=== PATIENT | female | born 1980 | race Caucasian/White ===

== ENCOUNTER → 2019-10-04 | Outpatient (CLI) | payer OTHER ==
[~2019-10-04] MED LIST: CHOL500021 PO; CLON-77 PO; HYOS0.1222 PO; LOSA-73 PO; METF500T16 PO; MIRT45TA53 PO; OMEP20TA63 PO; OXYC1TAB15 PO; PROG50VI IM; SUMA100T4 PO; TRAM50TA PO
== END | disposition home or self-care (01) ==
LOC: LAB 13:16
PROVIDERS: ATTEND Surgery
DX: Z01.818 Encounter for other preprocedural examination (principal); Z11.59 Encounter for screening for other viral diseases; K43.9 Ventral hernia without obstruction or gangrene
CPT/HCPCS: C9803; U0003

== ENCOUNTER 2019-10-10 06:28 | Day surgery (SDC) | payer OTHER ==
[~2019-10-10] VITALS: Ht 162.6 cm; Wt 98.0 kg
[~2019-10-10 06:28] MED LIST changes: +ACETAMINOPHEN 500 MG TABLET PO PRN; -OXYC1TAB15 PO
[2019-10-10] MEDS ORDERED: LIDOCAINE 1% PF 2 ML VIAL. ID PRN (07:00)
[2019-10-10] MEDS ORDERED: PROCHLORPERAZINE 10 MG/2 ML VIAL. IV PRN (07:00)
[2019-10-10] MEDS ORDERED: fentaNYL PF VIAL 100 MCG/2 ML VIAL IV PRN ×2 (07:00)
[2019-10-10] MEDS ORDERED: IV RINGERS,LACTATED 1000ML 1,000 ML IV SCH (07:00)
[2019-10-10] MEDS ORDERED: ONDANSETRON PF 4 MG/2 ML VIAL. IV PRN (07:00)
[2019-10-10] MEDS ORDERED: MINERAL OIL for SURGERY 10 ML VIAL. MC ONE (07:10)
[2019-10-10] MEDS ORDERED: BUPIVACAINE-EPI 0.25%-1:200000 MPF 30 ML VIAL. ONE (07:10)
[2019-10-10] MEDS ORDERED: DEXAMETHASONE SOD PHOS 4 MG/ML VIAL ONE (07:20)
[2019-10-10] MEDS ORDERED: fentaNYL PF VIAL 100 MCG/2 ML VIAL ONE ×2 (07:20→08:34)
[2019-10-10] MEDS ORDERED: LIDOCAINE 1% PF 5 ML VIAL. ONE (07:20)
[2019-10-10] MEDS ORDERED: ONDANSETRON PF 4 MG/2 ML VIAL. ONE (07:20)
[2019-10-10] MEDS ORDERED: ROCURONIUM 50 MG/5 ML VIAL. ONE (07:20)
[2019-10-10] MEDS ORDERED: PROPOFOL 10 MG/ML (20ML) VIAL. IV ONE (07:20)
[2019-10-10] MEDS ORDERED: MIDAZOLAM HCL/PF 2 MG/2 ML VIAL. ONE (07:21)
[2019-10-10] MEDS ORDERED: SUCCINYLCHOLINE 200 MG/10 ML VIAL. ONE (07:23)
[2019-10-10] MEDS ORDERED: KETAMINE HCL IN NACL, ISO-OSM 50 MG/5 ML SYRINGE ONE (07:53)
[2019-10-10] MEDS ORDERED: ceFAZolin 2GM PREMIX 2 GM/50 ML BAG IV ONE (08:00)
[2019-10-10] MEDS ORDERED: GLYCOPYRROLATE 1 MG/5 ML VIAL. ONE (08:22)
[2019-10-10] MEDS ORDERED: NEOSTIGMINE METHYLSULFATE 5 MG/5 ML SYRINGE. ONE (08:22)
--- NOTE | 2019-10-10 09:11 | PDOC4 ---
Operative Note Operative Note Date: October 092019 at 0908 Preoperative diagnosis: Ventral hernia Postoperative diagnosis: Same Procedure: Robotic assisted laparoscopic ventral hernia repair with mesh Surgeon: Kwabena Specimen: None Dictation: Patient is a 39-year-old female who is had chronic abdominal pain CT scan was done which showed a small ventral hernia with incarcerated fat. Procedure of robotic assisted laparoscopic ventral hernia repair with mesh was explained to the patient detail was benefits were also discussed including bleeding infection injury to intra-abdominal contents possible necessitating further open operations alternatives to this procedure also discussed with the patient who seemed to understand and gave both verbal and written consent to have the procedure performed. Patient was taken to the operating room placed the supine position general anesthesia was initiated once patient was sleeping intubated her abdomen was prepped and draped usual sterile fashion using ChloraPrep. An area in the left upper quadrant was injected quarter percent Marcaine with epinephrine incision was made 11 blade scalpel and a 5 mm Visiport was placed under direct visualization into the abdomen creating pneumoperitoneum once this complete 5 mm camera was placed within the abdomen which was inspected was noted there is a small ventral hernia in the midline containing fat. Da Marie ports were placed in the left midabdomen and the left lower abdomen the 5 mm Visiport was changed out da Marie port in the left upper abdomen. The da Marie robot was brought and docked all port sites surgeon went to the robotic console using grasper and Endo Joel scissors the hernia defect contents were reduced the hernia defect was then closed with a running 2 OV lock nonabsorbable suture. Bard ventral light ST mesh was then placed over the hernia defect this was sewn into place with a V lock 2-0 absorbable suture. The robot was undocked from all port sites pneumoperitoneum was reduced all ports were removed the port incisions were all closed with 4-0 subcuticular Monocryl Mastisol Steri-Strips and island dressings were applied. Patient was awakened extubated in the operating room taken to recovery in stable condition all sponge instrument needle counts listed as correct estimated blood loss 5 mL WARNER SOMERS MD Oct 10, 2019 09:11
--- NOTE | 2019-10-10 09:13 | DISCH ---
DISCHARGE INSTRUCTIONS Condition on Discharge Condition on Discharge: Stable Activity After Discharge Activity Instructions for Disc: Avoid exertion Other activity instructions: No lifting more than 20 pounds for 2 weeks Diet after Discharge Diet after Discharge: Regular Wound Incision Care Other wound/incision instructi: May shower in 24 hours Contacting the DRBrenda after DC Call your doctor for: If your condition worsens Follow-Up Follow up with: Dr. Somers in 2 weeks WARNER SOMERS MD Oct 10, 2019 09:13
[2019-10-10] MEDS ORDERED: SEVOFLURANE 61 TO 120 MINUTES. IH ONE (09:14)
[2019-10-10] MEDS ORDERED: OXYC1TAB15 PO (09:30)
[2019-10-10] MEDS ORDERED: MORPHINE SULFATE 2 MG/ML VIAL. ONE (09:36)
[2019-10-10] MEDS: MORPHINE SULFATE 2 MG/ML VIAL. IV PRN ×2 (09:40→09:44)
[2019-10-10] MEDS ORDERED: HYDROmorphone 2 MG/ML VIAL ONE (09:48)
[2019-10-10] MEDS: HYDROmorphone 2 MG/ML VIAL IV PRN ×4 (09:50→10:09)
[2019-10-10] MEDS ORDERED: oxyCODONE/APAP 5/325 1 TAB TABLET PO ONE ×2 (10:15)
[2019-10-10 10:29] VITALS: BP 120/76
== END 2019-10-10 11:00 | disposition home or self-care (01) ==
LOC: SURG 06:28
PROVIDERS: ATTEND Surgery
DX: K43.9 Ventral hernia without obstruction or gangrene (principal); Z88.8 Allergy status to other drugs, medicaments and biological substances
CPT/HCPCS: 49653; 81025; 82962; C1781; J0330; J0690; J0780; J1100; J1170; J2250; J2270; J2405; J2704; J2710; J3010; J3490; J7120

== ENCOUNTER → 2019-11-29 | Outpatient (CLI) | payer BC, OTHER ==
[~2019-11-29] MED LIST changes: -ACETAMINOPHEN 500 MG TABLET PO PRN; +BUPIVACAINE MPF 0.25% 10 ML VIAL. ONE; +MELA10TA2 PO; +OXYC1TAB15 PO
--- NOTE | 2019-11-29 12:21 | PDOC2 ---
INITIAL PAIN CONSULT DATE OF SERVICE: DOS: DATE: 11/29/19 TIME: 12:10 CHIEF COMPLAINT: Chief Complaint: Right lower quadrant abdominal pain HISTORY OF PRESENT ILLNESS: 39-year-old female presents history of pain for about 6 to 8 months right lower quadrant abdomen without any specific injury or accident that she is aware patient reports she has had multiple abdominal surgeries over multiple years including C-sections and abdominoplasty recently had a umbilical herniorrhaphy in September of this year. Patient reports that the pain was there prior to the umbilical herniorrhaphy and the umbilical hernia repair did not decrease the pain in the right lower quadrant. Patient describes the pain as aching and burning at times tingling stabbing sometimes cramping and aching has been waking her from sleep at night over the past few months. Patient reports not affect her bowel bladder control does not affect her ability to walk she not tried any therapies or routines at have decreased the pain significantly she tried high Cosamin which also did not decrease the pain as well. Patient is taking [id number] Tylenol and Advil which is not helping significantly as well. Patient rates her disability rating 0-10 10 being the worst as of 5 with family home responsibilities 0 with recreation sexual behavior and self-care 3 with social activity and occupational activities and 7 with life support activities especially sleeping. PAST MEDICAL HISTORY: PMH: Hypertension, arthritis ,irritable bowel syndrome, gastroesophageal reflux, quit smoking 2006 PREVIOUS SURGERIES: Past Surgical Hx: Umbilical hernia repair September 2019, 2000 and 2008, abdominoplasty 2013, breast reduction in 2013, wisdom teeth extraction 2005, left foot bone spur ex cision 2018, exploratory laparoscopy 2014 CURRENT MEDICATIONS: Current Meds: Active Scripts Medications Dose Route/Sig Max Daily Dose Days Date Category Melatonin 10 Mg Tab.mphase 1 Tab PO QHS 30 11/29/19 Reported Metformin Hcl 500 Mg Tablet 500 Mg PO BIDWMEALS 10/09/19 Reported Progesterone 50 Mg/1 Ml Vial 50 Mg IM EVERY 3 MOS 10/08/19 Reported Losartan Potassium 50 Mg Tablet 50 Mg PO DAILY 10/08/19 Reported Tramadol Hcl 50 Mg Tablet 50 Mg PO Q6HRS PRN 10/08/19 Reported Prilosec Otc (Omeprazole Magnesium) 20 Mg Tablet.dr 20 Mg PO DAILY 10/08/19 Reported Sumatriptan Succinate 100 Mg Tablet 100 Mg PO ONCE PRN 10/08/19 Reported Mirtazapine 45 Mg Tab.rapdis 30 Mg PO DAILY 10/08/19 Reported ALLERGIES; Allergies: Coded Allergies: duloxetine (Verified Allergy, Intermediate, dizziness, 10/10/19) FAMILY HISTORY: Family Hx: Thyroid disease, diabetes, depression, anxiety SOCIAL HISTORY: Social Hx: Patient does not drink alcohol quit smoking 6 years ago does not use any illegal illicit or recreational drugs is lives with her spouse has 2 children red lima at home reports he is currently a [id number] mom and they live locally in [facility] REVIEW OF SYSTEMS: ROS: Positive for those items mentioned in history of present illness, all systems are reviewed, otherwise negative, is complete full and well-documented on patient's chart PHYSICAL EXAM: VS: Blood pressure is 141/84 pulse 88 respirations 18 temperature 98.8 F height is 5 foot 9 inches weight is 2 1 5 pounds PE: PHYSICAL EXAMINATION: GENERAL: The patient is awake, alert, oriented, appropriate, very pleasant demeanor HEENT: Shows normocephalic, atraumatic. Extraocular movements are intact and symmetrical. Oral cavity: Mucous membranes moist and pink. Dentition is intact. NECK: Shows anterior throat supple without palpable lymphadenopathy noted. Swallow reflex symmetrical. CHEST: Shows normal on inspection. Breath sounds are clear bilaterally, no rales rhonchi wheezes auscultated. HEART: Shows S1, S2 clear. No murmurs auscultated. ABDOMEN: Soft, obese, nondistended, surgical scarring well-healed noted, with palpation shows significant tenderness inferior to the umbilicus to the right lower quadrant about a 10 cm diameter region without masses palpable no rebound but some guarding with deeper palpation. No palpable organomegaly is noted. BACK: Shows spine grossly in the midline. Normal-appearing cervical lordotic curvature. There is slightly increased thoracic kyphosis, some minor flattening of the lumbar lordotic curvature. EXTREMITIES: Lower extremities show deep tendon reflexes 2+ in the patellar and tendo calcaneus tendons. Motor exam is 5 on a scale of 5 with right dorsiflexion, extension, quadriceps and hamstring flexion and 5/5 on the left. Peripheral pulses are 1 posterior tibial. No peripheral edema is noted bilaterally. Lower extremities are warm and dry to touch, equal in color and appearance. No edema. No sores, rashes or bruising throughout. IMPRESSION: Impression: 39-year-old female with approximate 6 to 8-month history right lower quadrant abdominal pain. Multiple abdominal surgeries CT scan abdomen pelvis as noted Hypertension Obesity Arthritis Gastroesophageal reflux Plan: Options were discussed with the patient including conservative management management, and interventional techniques. Patient would like to pursue interve ntional techniques. We discussed a trans-abdominal block using descriptions as well as anatomical models to describe the procedure. Patient understands wished to proceed risk with an discussed including but not limited to bleeding infection possibility of extravasation of local anesthetic and numbness side effects of local anesthetic as well as poor results regarding pain control. Patient understands wished to proceed patient return to the clinic in approximately 2 weeks for follow-up was counseled as to return appointment activity level and side effects be aware of. Under sterile prep and drape patient in supine position patient's abdomen was prepped using sterile prep and drape using a 25-gauge needle and control syringe transabdominal block was performed in the right lateral lower quadrant negative aspiration was verified total of 10 cc 0.25% bupivacaine was then injected with out resistance or difficulty. Patient tolerated procedure well had no complications. BRITT WERNER MD Nov 29, 2019 12:21
== END | disposition home or self-care (01) ==
LOC: PNCL 09:34
PROVIDERS: ATTEND Anesthesiology
DX: R10.31 Right lower quadrant pain (principal); I10 Essential (primary) hypertension; M19.90 Unspecified osteoarthritis, unspecified site; E66.9 Obesity, unspecified; Z68.36 Body mass index [BMI] 36.0-36.9, adult; K21.9 Gastro-esophageal reflux disease without esophagitis; Z87.891 Personal history of nicotine dependence; Z98.890 Other specified postprocedural states; Z83.3 Family history of diabetes mellitus; Z88.8 Allergy status to other drugs, medicaments and biological substances
CPT/HCPCS: 64450; J3490

== ENCOUNTER → 2019-12-23 | Outpatient (CLI) | payer BC, OTHER ==
--- NOTE | 2019-12-23 09:29 | PDOC ---
Progress Note - Pain Clinic Date of Service: DOS: DATE: 12/23/19 TIME: 09:25 Diagnosis: Dx: Right lower quadrant abdominal pain History or Present Illness: HPI: 39-year-old female returns follow-up status post right transabdominal block on November 29, 2019. Patient reports 75% improvement until the last 4 days the pain returned in the right lower quadrant but not to the severity was previously patient reports before that she was doing much better with increased activity much less pain doing household activities work activities try with greater ease and comfort patient reports that now the pain is returning in the right lower quadrant is a 4 on a scale of 10 is worst 3 on average and 0 at its least is a 3 today patient reports no new motor or sensory deficit still some pain in the right lower quadrant as was previously superficially but also deeper in the abdominal wall as it was before. Patient reports no new motor or sensory deficits reports is not awakened from sleep at night better with sitting or relaxing worse with twisting bending changing positions or walking. Physical Exam: VS: Blood pressure is 134/90 pulse 81 respirations are 18 temperature 90.1 F height is 5 feet 4 inches weight is 211 pounds PE: PHYSICAL EXAMINATION: GENERAL: The patient is awake, alert, oriented, appropriate, very pleasant demeanor HEENT: Shows normocephalic, atraumatic. Extraocular movements are intact and symmetrical. NECK: Shows anterior throat supple without palpable lymphadenopathy noted. Swallow reflex symmetrical. CHEST: Shows normal on inspection. Breath sounds are clear bilaterally, no rales rhonchi or wheezes. HEART: Shows S1, S2 clear. No murmurs auscultated. ABDOMEN: Soft, nontender, nondistended obese. No palpable organomegaly is noted. No rebound or guarding demonstrated. Patient shows area in the right lower quadrant lateral to the umbilicus but inferior to the mid transverse abdominal line fairly well marcated approximately 10 x 10 cm region of very tender with palpation abdominal wall pain without specific radiation. Patient has no rashes no sores no bruising no abnormalities of the skin itself and above and below this region as well as laterally and medial to the region is nontender and is fairly well demarcated. No guarding or rebound in this region as well. SKIN: Shows warm and dry, good turgor. No edema. No sores, rashes or bruising throughout. Procedure: Procedure: Options were discussed with the patient. Patient chart was reviewed as her current medication regimen updated current review of systems updated today as well. We will proceed with a right transabdominal block risks are discussed including but not limited to bleeding infection possibility of extravasation of local anesthetic and spread with numbness as well as poor results regarding pain control. Patient understands wished to proceed patient return to clinic in approximate 4 weeks for follow-up or as necessary. Patient was counseled as to return appointment activity level and side effects to be aware of. Medication Injected: Med Injected: Under sterile prep and drape right transabdominal block was performed right lower quadrant using 25-gauge 1/2 inch needle with negative aspiration total of 10 cc 0.25% bupivacaine after negative aspiration. Patient tolerated procedure well had no complications. Condition at Discharge: Condition at Discharge: Patient tolerated the procedure well had no complications. BRITT WERNER MD Dec 23, 2019 09:29
== END | disposition home or self-care (01) ==
LOC: PNCL 08:45
PROVIDERS: ATTEND Anesthesiology
DX: R10.31 Right lower quadrant pain (principal); Z98.890 Other specified postprocedural states; Z88.8 Allergy status to other drugs, medicaments and biological substances
CPT/HCPCS: 64450; J3490

== ENCOUNTER → 2020-02-06 | Outpatient (CLI) | payer BC ==
--- NOTE | 2020-02-06 14:53 | PDOC ---
Progress Note - Pain Clinic Date of Service: DOS: DATE: 02/06/20 TIME: 14:48 Diagnosis: Dx: Right lower quadrant abdominal pain Postoperative pain History or Present Illness: HPI: 39-year-old female returns follow-up status post transabdominal block x2 last seen December. Patient ports near 100% improvement for about 5 weeks after the injection the pain returned 1 week ago in the right lower quadrant similar to what it was previously but not quite to baseline. Patient ports her pain is a 5 on a scale of 10 at this time and last week for an average 0 at its least and is a 4 today. Patient reports no new motor or sensory deficit or other complaints not awaken her from sleep dizzy she was doing much better with walking standing changing positions doing household activities try with greater ease and comfort now the pain is beginning to return in the right lower quadrant as it was previously. Patient reports no new motor or sensory deficits or other complaints Physical Exam: VS: Blood pressure is 136/103 pulse 109 respirations 18 temperature 90.7 F height is 5 feet 4 inches weight is 213 pounds PE: PHYSICAL EXAMINATION: GENERAL: The patient is awake, alert, oriented, appropriate, very pleasant demeanor HEENT: Shows normocephalic, atraumatic. Extraocular movements are intact and symmetrical. Oral cavity: Mucous membranes moist and pink. Dentition is intact. NECK: Shows anterior throat supple without palpable lymphadenopathy noted. Swallow reflex symmetrical. CHEST: Shows normal on inspection. Breath sounds are clear bilaterally. HEART: Shows S1, S2 clear. No murmurs auscultated. ABDOMEN: Soft, nontender, nondistended. No palpable organomegaly is noted. No rebound or guarding demonstrated. Patient has area approximately 10 cm diameter just to the right and inferior of the umbilicus with very tender even with light touch but not quite allodynia, in the abdominal wall and just below with moderate pressure is even more painful. It is very well-circumscribed with no pain above or below medial or lateral to the area of the 10 cm circumscribed region. No radiation with palpation. BACK: Shows spine grossly in the midline. Normal-appearing cervical lordotic curvature. There is slightly increased thoracic kyphosis, some minor flattening of the lumbar lordotic curvature. SKIN: Shows warm and dry, good turgor. No edema. No sores, rashes or bruising throughout. Procedure: Procedure: Options were discussed with the patient. Patient chart was reviewed as her current medication regimen updated current review of systems updated today as well. We will proceed with a third in the series transabdominal block the right lower quadrant. Risks are discussed including but not limited to bleeding infection possibility of intervascular injection sequelae spread local anesthetic and numbness, and poor results regarding pain control. Patient understands wished to proceed. Patient return to clinic in approximately 4 weeks, or as necessary for follow-up was counseled as to return appointment activity level and side effects to be aware of. Medication Injected: Med Injected: Under sterile prep and drape patient's abdominal wall was examined and prepped and draped in usual fashion using a 25-gauge 1-1/2 inch needle transabdominal block was carried out area of 10 cm diameter lateral and inferior to the umbilicus in the right lower quadrant with negative aspiration throughout. Patient tolerated procedure well and had no complications. Condition at Discharge: Condition at Discharge: Condition at discharge stable, patient tolerated procedure well and had no complications. BRITT WERNER MD Feb 06, 2020 14:53
== END | disposition home or self-care (01) ==
LOC: PNCL 14:01
PROVIDERS: ATTEND Anesthesiology
DX: R10.31 Right lower quadrant pain (principal); G89.18 Other acute postprocedural pain; Z79.84 Long term (current) use of oral hypoglycemic drugs; Z79.899 Other long term (current) drug therapy; Z87.891 Personal history of nicotine dependence; Z88.8 Allergy status to other drugs, medicaments and biological substances
CPT/HCPCS: 64486; J3490; 64450

== ENCOUNTER → 2020-03-04 | Outpatient (CLI) | payer BC ==
--- NOTE | 2020-03-04 14:45 | PDOC ---
Progress Note - Pain Clinic Date of Service: DOS: DATE: 03/04/20 TIME: 14:40 Diagnosis: Dx: Right lower quadrant abdominal pain with chronic postop pain from umbilical herniorrhaphy History or Present Illness: HPI: 39-year female returns follow-up status post transversus abdominis plane block x3 right lower quadrant. Patient ports about 60% overall improvement after the last injection previously with near 100% improvement after the second injection pain returning now patient reports only over the past week to 2 weeks has been more painful at night is been bothering her when she is sleeping is been waking her from sleep occasionally patient reports most nights it does not but some nights it has and has been more sharp in the right lower quadrant but again significantly improved from that previous to the injections patient reports her pain is a 4 to scale 10 is worse over the past week to an average 0 its least is a 2 today. Patient reports no new motor or sensory deficits again sleeping most nights but is been waking her from sleep about the past 1 to 2 weeks. Patient reports no new motor or sensory deficits no new changes describes pain as aching dull shooting sometimes cramping in the right lower quadrant as well. Physical Exam: VS: Blood pressure is 147/97 pulse 101 respirations 18 temperature 90.2 F height is 5 feet 4 inches weight is 216 pounds PE: PHYSICAL EXAMINATION: GENERAL: The patient is awake, alert, oriented, appropriate, very pleasant demeanor HEENT: Shows normocephalic, atraumatic. Extraocular movements are intact and symmetrical. NECK: Shows anterior throat supple without palpable lymphadenopathy noted. Swallow reflex symmetrical. CHEST: Shows normal on inspection. Breath sounds are clear bilaterally. HEART: Shows S1, S2 clear. No murmurs auscultated. ABDOMEN: Soft, nontender, nondistended. No palpable organomegaly is noted. No rebound or guarding demonstrated. Patient's right lower quadrant and right periumbilical distribution shows significant tenderness with even moderate to light palpation in a well-circumscribed area about 10 cm diameter inferior and rightward from the umbilicus itself which shows well-healed surgical scarring. No overt allodynia is present but very tender with moderate and light palpation, but without radiation. BACK: Shows spine grossly in the midline. Normal-appearing cervical lordotic curvature. There is slightly increased thoracic kyphosis, some minor flattening of the lumbar lordotic curvature. SKIN: Shows warm and dry, good turgor. No edema. No sores, rashes or bruising throughout. Procedure: Procedure: Options were discussed with the patient. Patient's old chart was reviewed as her current medication regimen updated current review of systems updated today as well. We will proceed with a right lower quadrant transversus abdominis plane block is the fourth in the series. Risks were discussed including but not limited to bleeding infection possibility of intravascular injection sequelae spread local anesthetic numbness side effects of local anesthetic as well as poor results regarding pain control. Patient understands wished to proceed. Patient will return to clinic in approximately 4 weeks or as necessary. Patient was counseled as activity level as well as side effects to be aware of. Medication Injected: Med Injected: Under sterile prep and drape patient's abdomen was prepped in the right lower quadrant using a 25-gauge 1-1/2 inch needle with a control syringe total of 10 cc of 0.25% bupivacaine was injected in transversus abdominis plane block, after negative aspiration. Patient tolerated the procedure well and had no complications. Condition at Discharge: Condition at Discharge: Condition at discharge stable, patient tolerated procedure well and had no complications BRITT WERNER MD Mar 04, 2020 14:45
== END | disposition home or self-care (01) ==
LOC: PNCL 13:45
PROVIDERS: ATTEND Anesthesiology
DX: R10.31 Right lower quadrant pain (principal); Z79.899 Other long term (current) drug therapy; Z79.84 Long term (current) use of oral hypoglycemic drugs; Z98.890 Other specified postprocedural states; Z87.891 Personal history of nicotine dependence; Z88.8 Allergy status to other drugs, medicaments and biological substances
CPT/HCPCS: 64486; J3490

== ENCOUNTER → 2020-09-29 | Outpatient (CLI) | payer BC ==
--- NOTE | 2020-09-29 09:35 | PDOC ---
Progress Note - Pain Clinic Date of Service: DOS: DATE: 09/29/20 TIME: 09:30 Diagnosis: Dx: Right lower quadrant abdominal pain, postop painchronic, status post umbilical herniorrhaphy History or Present Illness: HPI: 40-year-old female returns for follow-up last seen March 04, 2020 status post transabdominis plane block x4. Patient reports 100% improvement until July of this year with me 5 months decreased pain in the right lower quadrant towards the midline patient reports is returning now over the past 3 to 4 weeks increasing more at night is more sharper pain at night still not back to baseline but patient reports significant pain in the right lower quadrant right periumbilical region as well patient reports is a 7 on scale 10 is worse over the past week for an average 1 its least and is a 4 today patient ports aching cramping stabbing on and off in intensity worse with activity standing walking changing positions generally does not awaken her from sleep more than once or twice a night but is waking her from sleep about once every 6-8 hours patient reports no new motor or sensory deficits no new bowel or bladder incontinence or other complaints. Patient is doing much better after last injection was very pleased with her progress. Physical Exam: VS: Blood pressure is 132/90 pulse 93 respirations 18 temperature 98.6 3 Fahrenheit height is 5 feet 4 inches weight is 204 pounds PE: PHYSICAL EXAMINATION: GENERAL: The patient is awake, alert, oriented, appropriate, very pleasant in demeanor HEENT: Shows normocephalic, atraumatic. Extraocular movements are intact and symmetrical. NECK: Shows anterior throat supple without palpable lymphadenopathy noted. Swallow reflex symmetrical. CHEST: Shows normal on inspection. Breath sounds are clear bilaterally, no rales or rhonchi auscultated. HEART: Shows S1, S2 clear. No murmurs auscultated. ABDOMEN: Soft, nontender, nondistended, obese. No palpable organomegaly is noted. No rebound or guarding demonstrated. Patient has well-healed surgical scar at the umbilicus with palpation shows some significant tenderness with even moderate palpation right of the umbilicus and in the right lower quadrant with some minor radiation to the right groin with deeper palpation. No specific masses are palpated no rashes no discoloration of the skin is noted. Again well-healed surgical scars at the area of umbilical herniorrhaphy. SKIN: Shows warm and dry, good turgor. No edema. No sores, rashes or bruising throughout. Procedure: Procedure: Options were discussed with the patient. Patient's old chart was reviewed as her current medication regimen updated current review of systems updated today as well. We will proceed with a repeat right transabdominis plane block. Risk were discussed including but not limited to bleeding infection possibility of intravascular injection and sequelae spread local anesthetic and numbness as well as poor results regarding pain control. Patient understands wished to proceed. Patient will return to clinic in approximate 4 weeks for follow-up, was counseled as to return appointment activity level and side effects to be aware of. Medication Injected: Med Injected: Patient in the supine position under sterile prep and drape patient's abdominal wall was prepped and draped using 25-gauge needle was then injected in the right lower quadrant and periumbilical region with good popping sensation as needle was traversing through the myofascial layers with the needle, with negative aspiration prior to injection. A total of 10 cc of 0.25% bupivacaine was administered. Patient tolerated procedure well had no complications. Condition at Discharge: Condition at Discharge: Condition at discharge stable, patient already procedure well had no complications. BRITT WERNER MD Sep 29, 2020 09:35
--- NOTE | 2020-09-29 09:36 | PDOC4 ---
Procedure Note: Procedure Note: Patient was consented for transabdominis plane block, right lower quadrant. Risk were discussed including but not limited to bleeding infection possibility of intravascular injection sequelae spread of local anesthetic and numbness and portals regarding pain control. Patient understands wished to proceed. Patient in the supine position under sterile prep and drape patient's abdominal wall was prepped and draped using 25-gauge needle was then injected in the right lower quadrant and periumbilical region with good popping sensation as needle was traversing through the myofascial layers with the needle, with negative aspiration prior to injection. A total of 10 cc of 0.25% bupivacaine was admin istered. Patient tolerated procedure well had no complications. BRITT WERNER MD Sep 29, 2020 09:36
== END | disposition home or self-care (01) ==
LOC: PNCL 09:04
PROVIDERS: ATTEND Anesthesiology
DX: R10.31 Right lower quadrant pain (principal); G89.29 Other chronic pain; Z79.84 Long term (current) use of oral hypoglycemic drugs; Z79.899 Other long term (current) drug therapy; Z87.891 Personal history of nicotine dependence; Z88.8 Allergy status to other drugs, medicaments and biological substances
CPT/HCPCS: 64486; J3490

== ENCOUNTER → 2021-03-31 | Outpatient (CLI) | payer OTHER ==
[~2021-03-31] MED LIST changes: +IOHEXOL 180 MG/ML 10 ML VIAL. ONE; +methylPREDNISolone ACETATE 80 MG/ML VIAL. ONE
--- NOTE | 2021-03-31 08:29 | PDOC ---
Progress Note - Pain Clinic Date of Service: DOS: DATE: 03/31/21 TIME: 08:23 Diagnosis: Dx: Facial pain Lumbar radiculopathy with lumbar degenerative disease Abdominal pain-chronic- post op, status post ventral herniorrhaphy History or Present Illness: HPI: 40-year-old female returns after transverses abdominis plane block last seen September 29, 2020 did very well near 100% improvement after the last injection patient reports has had another exploratory laparotomy and her pain is still completely resolved patient's complaint today however is new pain in the mid and low back patient reports is radiating to the bilateral lower extremities posterior gluteus lateral thigh anterior thighs right and left essentially equal with slightly worse on the left today patient reports it is a 5 on a scale 10 is worst, 4 on average to its least is a 3 today. Patient reports its been going on for several months now increasing she has been taking muscle relaxants as well as anti-inflammatories without significant reduction pain also doing physical therapy exercises stretching strengthening daily and trying to walk daily is becoming more painful with more radiating pain especially in the low back and again more on the left side than the right patient reports no loss of motor function no bowel or bladder incontinence still significant pain in the back itself also in the mid upper back is becoming more painful recently as well over the past month or so patient reports is better with sitting or laying down generally does not awaken her from sleep at night worse with walking standing changing position specially getting up from a seated position and standing for prolonged periods more than 20 to 30minutes. Patient reports no bowel or bladder incontinence, no loss of motor function but significant fatigability in the low back as well as the bilateral lower extremities slightly more on the left. Patient did have plain films through her primary physician showing some degenerative changes in the lumbar spine as noted. Physical Exam: VS: Blood pressure is 154/103 pulse 91 respirations are 16 temperature 98.2 F height is 5 feet 4 inches weight is 219 pounds PE: PHYSICAL EXAMINATION: GENERAL: The patient is awake, alert, oriented, appropriate, very pleasant in demeanor HEENT: Shows normocephalic, atraumatic. Extraocular movements are intact and symmetrical. Oral cavity: Mucous membranes moist and pink. Dentition is intact. NECK: Shows anterior throat supple without palpable lymphadenopathy noted. Swallow reflex symmetrical. CHEST: Shows normal on inspection. Breath sounds are clear bilaterally, distant but no rales or rhonchi auscultated. HEART: Shows S1, S2 clear. No murmurs auscultated. ABDOMEN: Soft, nontender, nondistended. No palpable organomegaly is noted. Well-healed surgical scarring is again appreciated without significant tenderness throughout with palpation. BACK: Shows spine grossly in the midline. Normal-appearing cervical lordotic curvature. There is slightly increased thoracic kyphosis, some minor flattening of the lumbar lordotic curvature. Lumbar paraspinous muscles show symmetrical on inspection, on palpation shows some moderate tenderness diffusely throughout the upper, middle and lower distribution of the paraspinous muscles, with significant very firm ropelike musculature in the lower thoracic bilaterally as well as the bilateral lumbar paraspinous posterior middle lower and upper distribution very firm ropelike without specific radiation but consistent with trigger point areas of musculature is during the superior and medial aspect of the gluteus bilaterally again worse on the left than the right with palpation but without significant radiation very firm ropelike musculature consistent with trigger point areas of muscle in the gluteus as well. The patient has good rotational motion of the lumbar spine, both laterally as well as extension and flexion without significant difficulty. No tenderness over the spinous processes, sacrum or sacroiliac regions. EXTREMITIES: Lower extremities show deep tendon reflexes 2+ in the patellar and tendo calcaneus tendons. Motor exam is 5 on a scale of 5 with right dorsi flexion, extension, quadriceps and hamstring flexion and 5/5 on the left. Peripheral pulses are 1+ posterior tibial. No peripheral edema is noted bilaterally. Lower extremities are warm and dry to touch, equal in color and appearance. SKIN: Shows warm and dry, good turgor. No edema. No sores, rashes or bruising throughout. Procedure: Procedure: Options were discussed with the patient. Patient chart reviews her current medication regimen updated current review of systems updated today as well. We will proceed with trigger point injections of the aforementioned muscular bilateral thoracic paraspinous posture, bilateral lumbar paraspinous muscular, and bilateral gluteus musculature. Risk were discussed including but not limited to bleeding infection possibility of intravascular injection sequelae spread local anesthetic numbness side effects steroid medication and poor results regarding pain control. Patient understands wished to proceed. Patient will return to clinic in approximate 2 weeks for follow-up, was counseled as to return appointment, activity level, and side effect to be aware of. Medication Injected: Med Injected: In sitting position under sterile prep and drape identified musculature with trigger point areas lower thoracic paraspinous muscular bilaterally, lumbar paraspinous musculature bilateral upper middle and lower, gluteus musculature bilaterally was then injected using 25-gauge needle after negative aspiration each injection site for a total of 8 cc 0.25% Vivacaine total of 40 mg Depo- Medrol. Patient tolerated the procedure well and had no complications. Condition at Discharge: Condition at Discharge: Condition at discharge stable, patient tolerated the procedure well and had no complications. BRITT WERNER MD Mar 31, 2021 08:29
--- NOTE | 2021-03-31 08:30 | PDOC4 ---
Procedure Note: ICD 10 Code: ICD 10 Code: M60.89 Procedure Note: Patient was consented for trigger point injections bilateral thoracic paraspinous posture, bilateral lumbar paraspinous muscular, bilateral gluteus musculature. Risk were discussed including but not limited to bleeding infection possibility of intravascular injection sequelae spread of local anesthetic and numbness side effects of steroid medication and poor results regarding pain control. Patient understands and wished to proceed. In sitting position under sterile prep and drape identified musculature with trigger point areas lower thoracic paraspinous muscular bilaterally, lumbar paraspinous musculature bilateral upper middle and lower, gluteus musculature bilaterally was then injected using 25-gauge needle after negative aspiration each injection site for a total of 8 cc 0.25% Vivacaine total of 40 mg Depo- Medrol. Patient tolerated the procedure well and had no complications. BRITT WERNER MD Mar 31, 2021 08:30
== END | disposition home or self-care (01) ==
LOC: PNCL 07:35
PROVIDERS: ATTEND Anesthesiology
DX: M60.89 Other myositis, multiple sites (principal); M51.16 Intervertebral disc disorders with radiculopathy, lumbar region; R10.9 Unspecified abdominal pain; Z87.891 Personal history of nicotine dependence; Z79.84 Long term (current) use of oral hypoglycemic drugs; Z79.899 Other long term (current) drug therapy; Z88.8 Allergy status to other drugs, medicaments and biological substances
CPT/HCPCS: 20553; J1040; J3490; Q9965

== ENCOUNTER → 2021-05-17 | Outpatient (CLI) | payer OTHER ==
[~2021-05-17] MED LIST changes: +DEXAMETHASONE PRES.FREE 10 MG/ML VIAL. ONE; -IOHEXOL 180 MG/ML 10 ML VIAL. ONE; +TIZA-75 PO; -methylPREDNISolone ACETATE 80 MG/ML VIAL. ONE
--- NOTE | 2021-05-17 08:33 | PDOC ---
Progress Note - Pain Clinic Date of Service: DOS: DATE: 05/17/21 TIME: 08:25 Diagnosis: Dx: Myofascial pain Lumbar radiculopathy with lumbar degenerative disease Chronic postop abdominal pain status post ventral herniorrhaphy History or Present Illness: HPI: 40-year-old female returns for follow-up status post bilateral thoracic and lumbar and gluteus trigger point injections. Patient reports about 90% improvement for the first week and the pain beginning to return back slowly and gradually patient reports is in the upper back mid back as well as the low back into the hips bilaterally right essentially equal to left patient which is sharp and tight can be cramping and constant rated as a 6 on scale 10 is worse over the past week 5 on average 4 to [place] is a 4 today patient reports she has recent left foot fracture and she is wearing a boot on the left foot as well which is causing her pain to increase as she is walking awkwardly and using a lot of the pressure in her back to ambulate causing some increased pain patient reports that she did very well for the first 2 weeks or so after the [employer] injections also has had a recent exploratory laparotomy with lysis of adhesions which is decreased abdominal pain significantly. Patient reports that the pain is cramping as sharp and tight in the back especially between the shoulders upper back mid back in the low back is more of an aching dull pain which is stabbing and constant as well worse with activity standing walking changing positions wakes her from sleep about every 4 hours most nights patient reports no bowel or bladder incontinence no loss of motor function but again significant difficulty with walking she has significant pain in her knees also causing the back to be more aching with ambulation. Patient has been taking tizanidine but makes her very sleepy we discussed this in further detail and will change to new medication prescription of baclofen 10 mg 3 times daily patient given instructions as well as with the new prescription medication. Physical Exam: VS: Blood pressure is 133/97 pulse 96 respirations 16 temperature 98.3 F height 5 feet 4 inches weight is 224 pounds PE: PHYSICAL EXAMINATION: GENERAL: The patient is awake, alert, oriented, appropriate, very pleasant in demeanor HEENT: Shows normocephalic, atraumatic. Extraocular movements are intact and symmetrical. Oral cavity: Mucous membranes moist and pink. Dentition is intact. NECK: Shows anterior throat supple without palpable lymphadenopathy noted. Swallow reflex symmetrical. CHEST: Shows normal on inspection. Breath sounds are clear bilaterally, no rales or rhonchi. HEART: Shows S1, S2 clear. No murmurs auscultated. ABDOMEN: Soft, nontender, nondistended. No palpable organomegaly is noted. BACK: Shows spine grossly in the midline. Normal-appearing cervical lordotic curvature. There is slightly increased thoracic kyphosis, some minor flattening of the lumbar lordotic curvature. Lumbar paraspinous muscles show symmetrical on inspection, on palpation shows some moderate tenderness diffusely throughout the upper, middle and lower distribution of the paraspinous muscles with very firm ropelike musculature very tender consistent with trigger point areas of musculature throughout the thoracic distribution upper middle lower decrease the paraspinous muscles in the lumbar distribution as well as into the superior medial gluteus musculature bilaterally very firm ropelike musculature very tender with consistency and characteristic of trigger point areas without specific radiation of pain. The patient has good rotational motion of the lumbar spine, both laterally as well as extension and flexion without significant difficulty. No tenderness over the spinous processes, sacrum or sacroiliac regions. EXTREMITIES: Lower extremities show deep tendon reflexes 2+ in the patellar and tendo calcaneus tendons. Motor exam is 5 on a scale of 5 with right dorsiflexion, extension, quadriceps and hamstring flexion and 5/5 on the left. Peripheral pulses are 1+ posterior tibial. No peripheral edema is noted bilaterally. Lower extremities are warm and dry to touch, equal in color and appearance. Patient wearing a hard boot on the left foot. SKIN: Shows warm and dry, good turgor. No edema. No sores, rashes or bruising throughout. Procedure: Procedure: Options were discussed with patient. Patient's chart was reviewed as her current medication regimen updated current review of systems updated today as well. We will proceed with trigger point injections of the bilateral thoracic paraspinous posterior bilateral lumbar paraspinous muscles bilateral gluteus musculature. Risk were discussed including but not limited to bleeding infection possibility of intravascular injection sequelae spread of local anesthetic numbness side effects of steroid medication as well as poor results regarding pain control. Patient understands wishes to proceed. Again, will start new prescription medication of baclofen 10 mg 3 times daily patient was given instruction as well as side effects beware with the new prescription medication. Medication Injected: Med Injected: Patient sitting position under sterile prep and drape trigger point injections were identified in the bilateral thoracic paraspinous posture, bilateral lumbar paraspinous muscles, bilateral gluteus musculature. 25-gauge needle after negative aspiration each injection site trigger points were injected a total of 10 cc 0.25% bupivacaine and total of 10 mg dexamethasone. Patient tolerated the procedure well and had no complications. Condition at Discharge: Condition at Discharge: Condition at discharge stable, patient tolerated procedure well had no complications. BRITT WERNER MD May 17, 2021 08:33
--- NOTE | 2021-05-17 08:34 | PDOC4 ---
Procedure Note: ICD 10 Code: ICD 10 Code: M60.89 Procedure Note: Patient was consented for trigger point injections. Risk were discussed including not limited to bleeding infection possibility of intravascular ejection sequelae spread of local anesthetic and numbness side effects of steroid medication and poor results regarding pain control. Patient understands wished to proceed. Patient sitting position under sterile prep and drape trigger point injections were identified in the bilateral thoracic paraspinous posture, bilateral lumbar paraspinous muscles, bilateral gluteus musculature. 25-gauge needle after negative aspiration each injection site trigger points were injected a total of 10 cc 0.25% bupivacaine and total of 10 mg dexamethasone. Patient tolerated the procedure well and had no complications. BRITT WERNER MD May 17, 2021 08:34
== END | disposition home or self-care (01) ==
LOC: PNCL 07:57
PROVIDERS: ATTEND Anesthesiology
DX: M79.18 Myalgia, other site (principal); M51.16 Intervertebral disc disorders with radiculopathy, lumbar region; G89.29 Other chronic pain; Z79.84 Long term (current) use of oral hypoglycemic drugs; Z79.899 Other long term (current) drug therapy; Z87.891 Personal history of nicotine dependence; Z88.8 Allergy status to other drugs, medicaments and biological substances
CPT/HCPCS: 20553; J1100; J3490

== ENCOUNTER → 2021-06-07 | Outpatient (CLI) | payer OTHER ==
--- NOTE | 2021-06-07 08:55 | PDOC ---
Progress Note - Pain Clinic Date of Service: DOS: DATE: 06/07/21 TIME: 08:51 Diagnosis: Dx: Myofascial pain Lumbar radiculopathy with lumbar degenerative disc disease Abdominal pain with chronic postoperative pain status post ventral herniorrhaphy History or Present Illness: HPI: 40-year-old female returns for follow-up status post trigger point injections last seen May 17, 2021 patient did very well with about 50% improvement in the mid back upper back and low back and hips patient reports for several weeks pain was much reduced increase in activity with greater ease and comfort walking greater distances doing household activities work activities sleeping better patient reports still better with laying down does not generally awaken her from sleep at night patient reports no loss of motor function no bowel bladder incontinence but significant stiffness and tightness returning in the mid back u pper back into the low back and into the hips significantly the posterior gluteus bilaterally somewhat worse on the right than the left but present bilaterally patient reports cramping stabbing aching and tight in the back on and off in intensity again worse with activity worse with changing positions better with sitting or laying down and not awaken from sleep patient reports no bowel or bladder incontinence. Physical Exam: VS: Blood pressure is 159/104 pulse 93 respirations 18 temperature 98.4 F height is 5 feet 4 inches weight is 224 pounds PE: PHYSICAL EXAMINATION: GENERAL: The patient is awake, alert, oriented, appropriate, very pleasant in demeanor HEENT: Shows normocephalic, atraumatic. Extraocular movements are intact and symmetrical. Oral cavity: Mucous membranes moist and pink. Dentition is intact. NECK: Shows anterior throat supple without palpable lymphadenopathy noted. Swallow reflex symmetrical. CHEST: Shows normal on inspection. Breath sounds are clear bilaterally. HEART: Shows S1, S2 clear. No murmurs auscultated. ABDOMEN: Soft, nontender, nondistended. No palpable organomegaly is noted. BACK: Shows spine grossly in the midline. Normal-appearing cervical lordotic curvature. There is slightly increased thoracic kyphosis, some minor flattening of the lumbar lordotic curvature. Lumbar paraspinous muscles show symmetrical on inspection, on palpation shows some moderate tenderness diffusely throughout the upper, middle and lower distribution of the paraspinous muscles with significant tenderness throughout the rhomboid distribution of the trapezius as well as the thoracic paraspinous muscles are very firm ropelike musculature consistent with areas of trigger point musculature bilaterally without specific radiation lumbar paraspinous muscles show significant tenderness throughout the upper middle lower distribution the paraspinous muscles again very firm ropelike musculature bilaterally also into the superior and medial gluteus more on the right than left again with very firm ropelike musculature consistent with trigger point areas of musculature but without radiation on palpation bilaterally., without radiation of pain. The patient has good rotational motion of the lumbar spine, both laterally as well as extension and flexion without significant difficulty. No tenderness over the spinous processes, sacrum or sacroiliac regions. EXTREMITIES: Lower extremities show deep tendon reflexes 2+ in the patellar and tendo calcaneus tendons. Motor exam is 5 on a scale of 5 with right dorsiflexion, extension, quadriceps and hamstring flexion and 5/5 on the left. Peripheral pulses are 1+ posterior tibial. No peripheral edema is noted bilaterally. Lower extremities are warm and dry to touch, equal in color and appearance. SKIN: Shows warm and dry, good turgor. No edema. No sores, rashes or bruising throughout. Procedure: Procedure: Options were discussed with the patient. Patient's old chart was reviewed as her current medication regimen updated current review of systems updated today as well. We will proceed with trigger point injections of the identified musculature in the bilateral trapezius muscular bilateral thoracic paraspinous muscle bilateral lumbar paraspinous posterior and bilateral gluteus musculature. Risk were discussed including but not limited to bleeding infection possibility of intravascular injection sequelae spread of local anesthetic and numbness side effects of steroid medication and poor results regarding pain control. Patient understands wished to proceed. Patient return to clinic in approximately 4 weeks for follow-up, was counseled as to return appointment, activity level, and side effect to be aware of. Medication Injected: Med Injected: Patient sitting position under sterile prep and drape patient's trapezius thoracic paraspinous muscle as well as lumbar paraspinous and gluteus was sterilely prepped and draped in usual fashion. Using a 25-gauge needle after negative aspiration each injection site the trigger point areas were identified and injected for a total of 12 cc 0.25% ropivacaine and 10 mg dexamethasone. Patient tolerated the procedure well and had no complications. Condition at Discharge: Condition at Discharge: Condition at discharge stable, patient tolerated procedure well and had no complications. BRITT WERNER MD Jun 07, 2021 08:55
--- NOTE | 2021-06-07 08:56 | PDOC4 ---
Procedure Note: ICD 10 Code: ICD 10 Code: M60.89 Procedure Note: Patient was consented for trigger point injections. Risk were discussed including but not limited to bleeding infection possibility of intravascular injection and sequelae spread of local anesthetic and numbness pneumothorax side effects of steroid medication and poor results regarding pain control. Patient understands wishes to proceed. Patient sitting position under sterile prep and drape patient's trapezius thoracic paraspinous muscle as well as lumbar paraspinous and gluteus was sterilely prepped and draped in usual fashion. Using a 25-gauge needle after negative aspiration each injection site the trigger point areas were identified and injected for a total of 12 cc 0.25% ropivacaine and 10 mg dexamethasone. Patient tolerated the procedure well and had no complications. BRITT WERNER MD Jun 07, 2021 08:56
== END | disposition home or self-care (01) ==
LOC: PNCL 08:24
PROVIDERS: ATTEND Anesthesiology
DX: M79.18 Myalgia, other site (principal); M51.16 Intervertebral disc disorders with radiculopathy, lumbar region; R10.9 Unspecified abdominal pain; Z87.891 Personal history of nicotine dependence; Z79.84 Long term (current) use of oral hypoglycemic drugs; Z79.899 Other long term (current) drug therapy; Z88.8 Allergy status to other drugs, medicaments and biological substances
CPT/HCPCS: 20553; J1100; J3490

== ENCOUNTER → 2021-07-12 | Outpatient (CLI) | payer OTHER ==
[~2021-07-12] MED LIST changes: +LEVO50TA5 PO
--- NOTE | 2021-07-12 08:56 | PDOC ---
Progress Note - Pain Clinic Date of Service: DOS: DATE: 07/12/21 TIME: 08:47 Diagnosis: Dx: Myofascial pain Lumbar radiculopathy with lumbar degenerative disease Abdominal pain postoperative chronic, status post ventral herniorrhaphy History or Present Illness: HPI: 40-year-old female returns for follow-up status post trigger point injections with very good results about 75% improvement for 6 weeks or so patient reports pain is beginning to return but the spasms are less intense still has some tightness in the neck shoulders upper back mid back low back and into the gluteus musculature but significant improved patient was increasing her activity with greater ease and comfort doing greater distances walking sleeping better at night patient reports pain is beginning to return now in all those regions rated only as a 4 on a scale 10 is worst for an average 2 to [place] is a 4 today pain scribes aching can be sharp and stabbing base of neck and shoulders upper back mid back low back into the gluteus musculature slightly worse on the left than right but present bilaterally. Patient reports his spasms are much less intense and she is sleeping much better at night and increase her activity at home as well as with work. Patient reports no new motor or sensory deficit still some low back pain as well some radiation into the lower extremities but much minimal as compared to previously. Patient reports no bowel or bladder incontinence. Physical Exam: VS: Blood pressure is 134/88 pulse 97 respirations 16 temperature 98.3 F weight is 226 pounds. PE: PHYSICAL EXAMINATION: GENERAL: The patient is awake, alert, oriented, appropriate, very pleasant demeanor HEENT: Shows normocephalic, atraumatic. Extraocular movements are intact and symmetrical. Oral cavity: Mucous membranes moist and pink. Dentition is intact. NECK: Shows anterior throat supple without palpable lymphadenopathy noted. Swallow reflex symmetrical. CHEST: Shows normal on inspection. Breath sounds are clear bilaterally, no rales rhonchi or wheezes auscultated. HEART: Shows S1, S2 clear. No murmurs auscultated. ABDOMEN: Soft, nontender, nondistended. No palpable organomegaly is noted. BACK: Shows spine grossly in the midline. Normal-appearing cervical lordotic curvature. Cervical paraspinous muscles show symmetrical inspection, palpation some moderate tenderness diffusely in the middle and lower decrease the paraspinous muscles very firm [place] musculature consistent with areas of trigger point musculature very tender with palpation but without radiation. Thoracic paraspinous muscles show symmetrical as is the trapezius with very firm [place] musculature bilaterally worse on the left than the right but present bilaterally without specific radiation but with very firm [place] musculature consistent with trigger point areas this is true into the thoracic paraspinous muscular as well as lumbar paraspinous muscular bilaterally with very firm [place] musculature consistent with trigger point areas of musculature bilat erally again worse on the left than the right but symmetrical without radiation. Also the superior gluteus slightly more on the left than the right but very firm [place] musculature consistent with trigger point areas in this region as well without radiation on palpation but significantly tender bilaterally. There is slightly increased thoracic kyphosis, some minor flattening of the lumbar lordotic curvature. . The patient has good rotational motion of the lumbar spine, both laterally as well as extension and flexion without significant difficulty. No tenderness over the spinous processes, sacrum or sacroiliac regions. EXTREMITIES: Lower extremities show deep tendon reflexes 2+ in the patellar and tendo calcaneus tendons. Motor exam is 5 on a scale of 5 with right dorsiflexion, extension, quadriceps and hamstring flexion and 5/5 on the left. Peripheral pulses are 1+ posterior tibial. No peripheral edema is noted bilaterally. Lower extremities are warm and dry to touch, equal in color and appearance. SKIN: Shows warm and dry, good turgor. No edema. No sores, rashes or bruising throughout. Procedure: Procedure: Options discussed with the patient. Patient's old chart was reviewed as well as her current medication regimen, and updated, and current review of systems updated today as well. We will proceed with trigger point injections of the bilateral cervical paraspinous posterior bilateral trapezius muscular bilateral thoracic paraspinous muscular bilateral lumbar paraspinous muscle bilateral gluteus musculature. Risk were discussed including but not limited to bleeding infection possibility of intravascular injection sequelae pneumothorax side effects of steroid medication, and poor results regarding pain control. Patient understands wishes to proceed. Patient will return to the clinic in approximately 4 weeks for follow-up, was counseled as to return appointment, activity level, and side effects to be aware of. Medication Injected: Med Injected: Patient sitting position under sterile prep and drape patient's cervical paraspinous posterior trapezius musculature, thoracic paraspinous posture and lumbar paraspinous muscular as well as gluteus musculature was sterilely prepped and draped, and trigger point areas were identified in the musculature and using a 25-gauge needle after negative aspiration each injection site total of 12 cc 0.25% ropivacaine and total of 20 mg of dexamethasone was injected after negative aspiration each injection site. Patient tolerated procedure well and had no complications. Condition at Discharge: Condition at Discharge: Condition at discharge is stable, patient tolerated procedure well and had no complications. BRITT WERNER MD Jul 12, 2021 08:56
--- NOTE | 2021-07-12 08:56 | PDOC4 ---
Procedure Note: ICD 10 Code: ICD 10 Code: M60.89 Procedure Note: Patient was consented for trigger point injections. Risk were discussed including but not limited to bleeding infection possibility of intravascular injection sequelae spread local anesthetic numbness pneumothorax side effects of steroid medication and poor results regarding pain control. Patient understands wished to proceed. Patient sitting position under sterile prep and drape patient's cervical paraspinous posterior trapezius musculature, thoracic paraspinous posture and lumbar paraspinous muscular as well as gluteus musculature was sterilely prepped and draped, and trigger point areas were identified in the musculature and using a 25-gauge needle after negative aspiration each injection site total of 12 cc 0.25% ropivacaine and total of 20 mg of dexamethasone was injected after negative aspiration each injection site. Patient tolerated procedure well and had no complications. BRITT WERNER MD Jul 12, 2021 08:56
== END | disposition home or self-care (01) ==
LOC: PNCL 07:57
PROVIDERS: ATTEND Anesthesiology
DX: M79.18 Myalgia, other site (principal); M51.16 Intervertebral disc disorders with radiculopathy, lumbar region; R10.9 Unspecified abdominal pain; Z79.84 Long term (current) use of oral hypoglycemic drugs; Z79.899 Other long term (current) drug therapy; Z87.891 Personal history of nicotine dependence; Z88.8 Allergy status to other drugs, medicaments and biological substances
CPT/HCPCS: 20553; J1100; J3490